=== PATIENT | female | born 1965 | race Caucasian/White ===

== ENCOUNTER 2018-02-06 05:53 | Day surgery (SDC) | payer MEDICARE, BC ==
[2018-02-04 13:11] LABS: ALANINE AMINOTRANSFERASE 29 U/L (12-78); ALBUMIN 3.9 g/dL (3.4-5.0); ANION GAP 8 mmol/L (5-15); CALCIUM 8.9 mg/dL (8.5-10.1); CHLORIDE 103 mmol/L (98-107)
[2018-02-04 13:14] LABS: ALKALINE PHOSPHATASE 54 U/L (45-117); BILIRUBIN,TOTAL 0.4 mg/dL (0.2-1.0); CREATININE 0.65 mg/dL (0.55-1.02); TOTAL PROTEIN 7.1 g/dL (6.4-8.2)
[~2018-02-06] VITALS: Ht 165.1 cm; Wt 72.7 kg
[~2018-02-06 05:53] MED LIST: ASCO100019 PO; BIOT10TA PO; CALC0.25 PO; CALC3.7S5 NS; DICL100G25 TP; ESTR30CR TP; FLUO20CA19 PO; FURO20TA3 PO; GABA300C10 PO; GARL10002 PO; GLUC1TAB27 PO; LACT1CAP37 PO; LIOT5TAB3 PO; LIRA0.6P SC; MIDO5TAB PO; MIGL25TA PO; MONT10TA9 PO; MULT-658 PO; OMEG1CAP23 PO; POTA10TA6 PO; PROG1.3G2 TP; SIMV20TA3 PO; VITA40TA PO; [UNRECOGNIZED DRUG - OTHER] PO; testosterone TP; vitamin d3 PO
[2018-02-06] MEDS ORDERED: LACTATED RINGERS 1,000 ML IV SCH (06:24)
[2018-02-06 06:26] VITALS: BP 107/67
[2018-02-06] MEDS ORDERED: BUPIVACAINE/PF 0.5% ONE (06:53)
[2018-02-06] MEDS ORDERED: EPINEPHRINE 1 MG/ML, 1ML ONE (06:53)
[2018-02-06] MEDS ORDERED: MIDAZOLAM 1 MG/ML, 2ML ONE (07:05)
[2018-02-06] MEDS ORDERED: FENTANYL PF 250 MCG/5ML ONE (07:06)
[2018-02-06] MEDS ORDERED: EPHEDRINE 50 MG/ML, 1ML IVPush PRN (07:30)
[2018-02-06] MEDS ORDERED: MEPERIDINE/PF 25MG/0.5ML IVPush PRN (07:30)
[2018-02-06] MEDS ORDERED: KETOROLAC 30 MG/1 ML IV PRN (07:30)
[2018-02-06] MEDS ORDERED: morphine SULFATE 10 MG/ML, 1ML IV PRN (07:30)
[2018-02-06] MEDS ORDERED: HYDROcodone/APAP 7.5-325MG/15ML UDC PO PRN (07:30)
[2018-02-06] MEDS ORDERED: ACETAMINOPHEN 325 MG TABLET PO PRN (07:30)
[2018-02-06] MEDS ORDERED: ONDANSETRON 2MG/ML, 2ML IVPush PRN (07:30)
[2018-02-06] MEDS ORDERED: PROMETHAZINE 25 MG/ML, 1ML IV PRN (07:30)
[2018-02-06] MEDS ORDERED: OXYcodone 5 MG/5 ML ORAL.SOL UDC PO PRN (07:30)
[2018-02-06] MEDS ORDERED: ONDANSETRON 2MG/ML, 2ML ONE (07:37)
[2018-02-06] MEDS ORDERED: CEFAZOLIN 1,000 MG ONE (07:37)
[2018-02-06] MEDS ORDERED: DEXAMETHASONE 4 MG/ML, 1ML ONE (07:37)
[2018-02-06] MEDS ORDERED: PROPOFOL 10 MG/ML, 20ML ONE ×2 (07:37)
[2018-02-06] MEDS ORDERED: CEFOTETAN PMX 1GM/50ML 50 ML ONE (07:38)
[2018-02-06] MEDS ORDERED: KETOROLAC 30 MG/1 ML ONE (07:38)
[2018-02-06] MEDS ORDERED: ACETAMINOPHEN 650 MG/20.3 ML UDC ONE (08:01)
[2018-02-06] MEDS ORDERED: FENTANYL PF 100 MCG/2ML ONE (08:01)
[2018-02-06] MEDS ORDERED: ACETAMINOPHEN 325 MG TABLET ONE (08:01)
[2018-02-06] MEDS ORDERED: OXYcodone 5 MG/5 ML ORAL.SOL UDC ONE (08:02)
[2018-02-06] MEDS: FENTANYL PF 100 MCG/2ML IV PRN ×2 (08:05→08:18)
== END 2018-02-06 09:35 ==
LOC: OUT 05:53
PROVIDERS: ATTEND Colon & Rectal Surgery
DX: K60.2 Anal fissure, unspecified (principal); J45.909 Unspecified asthma, uncomplicated; E78.00 Pure hypercholesterolemia, unspecified; E03.9 Hypothyroidism, unspecified; Z98.890 Other specified postprocedural states; Z90.710 Acquired absence of both cervix and uterus; Z90.49 Acquired absence of other specified parts of digestive tract
CPT/HCPCS: 36415; 46080; 80053; J0171; J1100; J1885; J2250; J2405; J2704; J3010; J3490; J7120; S0074; J0690